=== PATIENT | female | born 1940 | race Caucasian/White ===

== ENCOUNTER 2020-10-27 13:13 | Emergency (ER) | payer MEDICARE, OTHER ==
[~2020-10-27] VITALS: Ht 162.6 cm; Wt 60.3 kg
[2020-10-27 15:08] VITALS: BP 124/75
== END 2020-10-27 15:09 ==
LOC: ER 13:13
DX: S09.90XA Unspecified injury of head, initial encounter (principal); S01.112A Laceration without foreign body of left eyelid and periocular area, initial encounter; S00.83XA Contusion of other part of head, initial encounter; W01.0XXA Fall on same level from slipping, tripping and stumbling without subsequent striking against object, initial encounter; Z91.81 History of falling; Y92.099 Unspecified place in other non-institutional residence as the place of occurrence of the external cause; F03.90 Unspecified dementia, unspecified severity, without behavioral disturbance, psychotic disturbance, mood disturbance, and anxiety; E11.9 Type 2 diabetes mellitus without complications; Z79.84 Long term (current) use of oral hypoglycemic drugs; Z79.899 Other long term (current) drug therapy; M50.321 Other cervical disc degeneration at C4-C5 level
CPT/HCPCS: 70450; 70486; 72125; A4217; A4663

== ENCOUNTER 2020-12-12 13:10 | Emergency (ER) | payer OTHER ==
[~2020-12-12] VITALS: Ht 165.1 cm; Wt 57.6 kg
[2020-12-12 13:48] LABS: HEMATOCRIT 32.8 % (31.2-41.9); MEAN CORPUSCULAR HEMOGLOBIN 28.3 uug (24.7-32.8); MEAN CORPUSCULAR VOLUME 85.8 fL (75.5-95.3); PLATELET COUNT (AUTO) 194 K/uL (179-408)
[2020-12-12] MEDS ORDERED: OMEP20TA5 PO (14:00)
[2020-12-12] MEDS ORDERED: TRAZ-257 PO (14:00)
[2020-12-12] MEDS ORDERED: ASCO500P18 PO (14:00)
[2020-12-12] MEDS ORDERED: FLUO20CA42 PO (14:00)
[2020-12-12] MEDS ORDERED: ROSU10TA2 PO (14:00)
[2020-12-12] MEDS ORDERED: DOCU100C36 PO (14:00)
[2020-12-12] MEDS ORDERED: AMLO-212 PO (14:00)
[2020-12-12] MEDS ORDERED: ASPI81TA31 PO (14:00)
[2020-12-12] MEDS ORDERED: CALC-1210 PO (14:00)
[2020-12-12] MEDS ORDERED: TEMA15CA PO (14:00)
[2020-12-12] MEDS ORDERED: FOLI1TAB94 PO (14:00)
[2020-12-12] MEDS ORDERED: QUET25TA PO (14:00)
[2020-12-12] MEDS ORDERED: INSU100V39 SQ (14:00)
[2020-12-12] MEDS ORDERED: METF-440 PO (14:00)
[2020-12-12 14:11] LABS: BILIRUBIN,TOTAL 0.5 mg/dL (0.2-1.0); CREATININE 1.1 mg/dL (0.6-1.3); POTASSIUM 3.8 mmol/L (3.5-5.1); TOTAL PROTEIN, SERUM 6.4 g/dL (6.4-8.2)
--- NOTE | 2020-12-12 15:51 | NUR ---
Gave pt d/c instructions, pt verbalized understanding. Also explained to pt's caregiver.
== END 2020-12-12 16:25 ==
LOC: ER 13:10
DX: S00.83XA Contusion of other part of head, initial encounter (principal); W18.49XA Other slipping, tripping and stumbling without falling, initial encounter; W22.01XA Walked into wall, initial encounter; Y93.01 Activity, walking, marching and hiking; Y92.099 Unspecified place in other non-institutional residence as the place of occurrence of the external cause; F03.90 Unspecified dementia, unspecified severity, without behavioral disturbance, psychotic disturbance, mood disturbance, and anxiety; E11.9 Type 2 diabetes mellitus without complications; Z79.4 Long term (current) use of insulin; Z79.899 Other long term (current) drug therapy; Z88.8 Allergy status to other drugs, medicaments and biological substances; R94.31 Abnormal electrocardiogram [ECG] [EKG]
CPT/HCPCS: 36415; 70450; 85025; 93005; A4663